=== PATIENT | female | born 1950 | race Caucasian/White ===

== ENCOUNTER → 2019-07-31 | Outpatient (CLI) | payer BC ==
[~2019-07-31] MED LIST: ACYC400T PO; ASPI81TA85 PO; CINN500C15 PO; HYDR50TAB PO; LISI-542 PO; MELO15TA28 PO; MS C15TA8 PO; NORV5TAB PO; PERC5TAB12 PO; PRAV40TA2 PO; PRIL20TA2 PO; TRAM50TA2 PO; ULTR50TA8 PO; VENL75TA2 PO
--- NOTE | 2019-07-31 14:07 | REP ---
REASON: Severe neck pain. There are no priors for comparison. I have been given no history of trauma whatsoever. There is advanced disc space narrowing at every level, particularly C4-5, C5-6, and C6-7, where heavy anterior and posterior osteophytic ridging is present. There is limitation of flexion and extension radiographically. Hypertrophic degenerative facet and uncovertebral joint changes are present at every level bilaterally. The facet joints appear to be well aligned bilaterally. On the left, there is foraminal narrowing C4-5 through C6-7 inclusive, and on the right there is foraminal narrowing C3-4 through C7-T1 inclusive. The dens cannot be effectively evaluated secondary to the superimposition of osseous structures and/or dentition on all views. Marked degenerative changes, as described above. Consider further evaluation with MRI. Although this plain radiographic evaluation of the cervical spine shows no evidence of a fracture, it should be remembered that CT is much more sensitive than plain radiography of the C-spine in detecting fractures. If this examination was ordered to rule out a fracture, then CT of the cervical spine is recommended. Electronically Signed by Elian Ramachandran DO 07/31/2019 03:06 P
--- NOTE | 2019-07-31 16:18 | ECGEPIP ---
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
== END ==
LOC: M RAD 10:54
PROVIDERS: ATTEND Chiropractor
DX: M54.2 Cervicalgia (principal)

== ENCOUNTER → 2019-07-31 | Outpatient (CLI) | payer BC ==
[2019-07-31 11:32] LABS: MEAN CORPUSCULAR HEMOGLOBIN 30.4 pg (27.0-33.0); MEAN CORPUSCULAR HGB CONC 32.5 g/dl (32.0-36.5); MEAN CORPUSCULAR VOLUME 93.5 fl (80.0-96.0); PLATELET COUNT, AUTOMATED 390 10^3/uL (150-450); RED BLOOD COUNT 4.28 10^6/uL (4.00-5.40); WHITE BLOOD COUNT 6.3 10^3/uL (4.0-10.0)
[2019-07-31 11:50] LABS: ERYTHROCYTE SEDIMENTATION RATE 37 mm/hr (0-30)
[2019-07-31 11:53] LABS: INR 1.09; PROTHROMBIN TIME 13.8 SECONDS (11.8-14.0)
[2019-07-31 12:06] LABS: ALBUMIN 3.9 GM/DL (3.2-5.2); BILIRUBIN,TOTAL 0.5 MG/DL (0.2-1.0); CREATININE FOR GFR 1.08 MG/DL (0.55-1.30); GLOMERULAR FILTRATION RATE 53.9 (>45); POTASSIUM SERUM 3.7 MEQ/L (3.5-5.1); TOTAL PROTEIN 7.5 GM/DL (6.4-8.2)
--- NOTE | 2019-07-31 12:18 | REP ---
TWO-VIEW CHEST: REASON FOR EXAM: Preop. COMPARISON: Portable exam of 10/05/2013, which is the only prior. FINDINGS: The superior mediastinal structures are midline. The cardiac silhouette is unremarkable in size, shape, and position. The diaphragmatic surfaces of the lungs are regular, and the costophrenic angles are clear. The pulmonary fortune are clear. The imaged osseous structures are intact. IMPRESSION: There is no acute cardiopulmonary disease. No significant change from the prior exam. Electronically Signed by Elian Ramachandran DO 07/31/2019 03:05 P
== END ==
LOC: M LAB 10:47
PROVIDERS: ATTEND Orthopaedic Surgery
DX: M17.12 Unilateral primary osteoarthritis, left knee (principal)

== ENCOUNTER → 2019-08-02 | Outpatient (CLI) | payer BC, OTHER | LOC: M LABSMTC 08:49 | PROVIDERS: ATTEND Anesthesiology | DX: Z03.818 Encounter for observation for suspected exposure to other biological agents ruled out (principal); Z11.59 Encounter for screening for other viral diseases | CPT/HCPCS: C9803; U0003 ==

== ENCOUNTER 2019-08-05 10:32 | Inpatient (IN) | payer BC ==
--- NOTE | 2019-07-31 16:23 | HPE ---
DATE OF ANTICIPATED ADMISSION: 08/05/2019 ATTENDING PHYSICIAN: Dr. Perez CHIEF COMPLAINT: Left knee pain and stiffness. HISTORY: The patient is a 69-year-old female with progressively worsening left knee pain and stiffness. She has failed to improve with conservative measures. She continues to have symptoms with weightbearing activities and activities of daily living. She consented for an elective left total knee arthroplasty with Dr. Perez for her continued symptoms. Medical optimization is pending with her primary healthcare corporate account director Dr. Gold. CURRENT MEDICATIONS: - aspirin 81 mg daily - potassium 20 mEq daily - magnesium 250 mg daily - cinnamon 2000 mg twice daily - Prilosec 20 mg twice daily - pravastatin 40 mg daily - venlafaxine 75 mg twice daily - hydrochlorothiazide 50 mg daily - amlodipine 5 mg daily - lisinopril 5 mg daily - meloxicam 15 mg daily - acyclovir 400 mg twice daily ALLERGIES: TALWIN, STADOL, CLINDAMYCIN, LEVAQUIN, CODEINE, TAVIST, MINOCIN, DEMEROL. CHRONIC MEDICAL CONSITIONS: Gastroesophageal reflux disease. Hypertension. Hyperlipidemia. Osteoarthritis. Post menopausal symptoms. PAST SURGICAL HISTORY: Total hysterectomy. Cholecystectomy. Cystocele repair. Urethra sling. Bilateral tubal ligation, SOCIAL HISTORY: The patient denies smoking and rarely consumes alcohol. REVIEW OF SYSTEMS: The patient denies fevers, chills, nausea, vomiting, or diarrhea. She denies chest pain, shortness of breath, lightheadedness, dizziness, or headaches. She denies any recent upper respiratory or urinary tract infection symptoms. She denies any abdominal pain. She does continue to have left knee pain with weightbearing activities and activities of daily living. PHYSICAL EXAMINATION: GENERAL: Well-nourished, well-developed female in no apparent distress. She is alert, oriented and cooperative. Mood and affect are appropriate. VITAL SIGNS: Blood pressure 132/68. Heart rate 63. Respirations 14. Height 64 inches. Weight 176. Temperature 96.8. HEART: Regular rate and rhythm. LUNGS: Breathing is regular and nonlabored. Lungs are clear to auscultation bilaterally. ABDOMEN: Soft. Bowel sounds are present. No tenderness to palpation. MUSCULOSKELETAL: Left knee reveals no gross abnormalities. There is no erythema, edema, or ecchymosis. Skin is intact. She does have tenderness along the medial joint line. The patient can extend knee to 2 degrees and flex to 110 degrees. Left lower extremity strength is 5/5. No hip irritability elicited with range of motion testing. The patient's calf is soft, nontender to palpation with no palpable cords noted. She is neurovascularly intact distally. IMPRESSION: Left knee degenerative arthritis with x-rays notable for end-stage degenerative changes. PLAN: The patient has consented for a left total knee arthroplasty with Dr. Perez for her continued symptoms. Medical optimization pending with Dr. Gold. The patient will scrap picker her Hibiclens wash and Bactroban and start using those today. She will discontinue her meloxicam 3 days prior to surgery. MTDD
[~2019-08-05] VITALS: Ht 160 cm; Wt 78.5 kg
[~2019-08-05 10:32] MED LIST changes: +ACETAMINOPHEN 500 MG TAB PO ONE; +LR 1,000 ML IV ONE; -MS C15TA8 PO; -PERC5TAB12 PO; -TRAM50TA2 PO; -ULTR50TA8 PO; +ceFAZolin SOD 2 GM in IV 1 EA IV ONE
--- NOTE | 2019-08-05 12:32 | CR.PDOC ---
General Date of Consultation: Aug 05, 2019 Consultation REASON FOR CONSULTATION/CHIEF COMPLAINT: Medical management Who presented to the hospital for an elective orthopedic procedure HISTORY OF PRESENT ILLNESS: Patient is a 69-year-old female with a past medical history of hypertension, dyslipidemia, osteoarthritis, and GERD who presented to the [facility] for an elective orthopedic procedure. Patient was scheduled for a total left knee arthroplasty and has received medical clearance from her outpatient provider, Dr. Gold. Patient reports that she received a stress test the day prior, which was negative. . Hospitalist service was consulted for medical management. Patient was seen preoperatively. She reports a mild headache. Denies nausea, vomiting, chest pain, shortness of breath, cough, palpitations, abdominal pain, constipation, diarrhea, urinary discomfort, fevers or chills. Patient reports her appetite is fairly normal. He denies any changes in her weight. ALLERGIES: Please see below. HOME MEDICATIONS: Please see below. PAST MEDICAL HISTORY: Hypertension, dyslipidemia, osteoarthritis, and GERD PAST SURGICAL HISTORY: Hysterectomy Cholecystectomy Cystocele repair Urethral sling Bilateral tubal ligation FAMILY HISTORY: - No history of malignancies SOCIAL HISTORY: - Denies the use of alcohol, tobacco or illicit drugs - Lives with REVIEW OF SYSTEMS: 10 point review of systems complete, all negative otherwise stated in HPI PHYSICAL EXAMINATION: - Vitals: BP 124/63, HR 95, RR 20, Sat 97%RA, Temp 97.9F - General: Lying in bed, No acute distress, Speaking in full sentences, AAOx3 - HEENT: NC, AT, PERRLA - CVS: RRR, +S1S2 - Lungs: Fair air entry bilaterally, no appreciable wheezing / rales / rhonchi - Abdomen: Soft, Non-distended, Non-tender - Extremities: No lower extremity edema, No calf tenderness - Neuro: No focal motor or sensory deficit - Skin: No visible rashes LABORATORY DATA: Please see below. ASSESSMENT/PLAN: Elective total left knee arthroplasty - Patient has presented to [facility] for elective procedure with orthopedic surgery - She has received outpatient medical clearance from her primary care provider, Dr. Gold - Pain control, anticoagulation and physical therapy at the direction of orthopedic surgery Hypertension - Will hold HCTZ (re: Await AM lab work) - c/w Lisinopril / Amlodipine Dyslipidemia - c/w Pravastatin Osteoarthritis - c/w Tylenol and additional pain control as per orthopedic team Depression - c/w Venlafaxine GERD - c/w Omeprazole DVT prophylaxis - Anticoagulation as per orthopedic team Vital Signs/I&O Vital Signs Date Time Temp Pulse Resp B/P (MAP) Pulse Ox O2 Delivery O2 Flow Rate FiO2 08/05/19 11:01 97.9 95 20 124/63 (83) 97 Room Air Allergies Coded Allergies: clindamycin (Verified Allergy, Intermediate, hives, 07/31/19) levofloxacin (Verified Allergy, Intermediate, hives, 07/31/19) minocycline (Verified Allergy, Intermediate, hives, 07/31/19) butorphanol (Verified Adverse Reaction, Intermediate, nausea, 07/31/19) codeine (Verified Adverse Reaction, Intermediate, nausea, 07/31/19) meperidine (Verified Adverse Reaction, Intermediate, nausea, 07/31/19) Uncoded Allergies: PAVIST (Allergy, Intermediate, itching, 07/31/19) Home Medications Scheduled Acyclovir (Acyclovir) 400 Mg Tablet, 400 MG PO BID, (Reported) Amlodipine Besylate (Norvasc) 5 Mg Tablet, 5 MG PO DAILY, (Reported) Aspirin (Aspir 81) 81 Mg Tablet.dr, 81 MG PO DAILY, #30 (Reported) Cinnamon Bark (Cinnamon) 500 Mg Capsule, 2,000 MG PO BID, (Reported) Hydrochlorothiazide (Hydrochlorothiazide) 50 Mg Tablet, 50 MG PO DAILY, (Reported) Lisinopril (Lisinopril) 5 Mg Tablet, 5 MG PO DAILY, (Reported) Meloxicam (Meloxicam) 15 Mg Tablet, 15 MG PO DAILY, (Reported) Omeprazole Magnesium (Prilosec Otc) 20 Mg Tablet.dr, 20 MG PO BID, (Reported) Pravastatin Sodium (Pravastatin Sodium) 40 Mg Tablet, 40 MG PO DAILY, (Reported) Venlafaxine HCl (Venlafaxine HCl) 75 Mg Tablet, 75 MG PO BID, (Reported) OBED SHERMAN MD Aug 05, 2019 12:32
[2019-08-05] MEDS ORDERED: fentaNYL 100 MCG/2 ML INJECTION (J3010) As Ordered ONE ×2 (12:34→14:06)
[2019-08-05] MEDS ORDERED: MIDAZOLAM INJ 2MG/2ML VIAL (J2250 PER 1MG) As Ordered ONE ×2 (12:34→14:06)
[2019-08-05] MEDS ORDERED: fentaNYL 100 MCG/2 ML INJECTION (J3010) IV ONE (13:00)
[2019-08-05] MEDS ORDERED: MIDAZOLAM INJ 2MG/2ML VIAL (J2250 PER 1MG) IV ONE (13:00)
[2019-08-05] MEDS ORDERED: TRANEXAMIC ACID 100 MG/ML 10ML VIAL As Ordered ONE (13:22)
[2019-08-05] MEDS ORDERED: EPINEPHrine INJ 1 MG/ML 1ML AMP As Ordered ONE (13:22)
[2019-08-05] MEDS ORDERED: BUPIVACAINE HCL 0.25% 30ML VIAL As Ordered ONE (13:22)
[2019-08-05] MEDS ORDERED: ceFAZolin 1GM VIAL (J0690 PER 500MG) As Ordered ONE (13:22)
[2019-08-05] MEDS ORDERED: BUPIVACAINE LIPOSOME/PF 1.3% 20ML VIAL (13.3MG/ML)(EXPAREL)(C9290 PER1MG) As Ordered ONE (13:23)
[2019-08-05] MEDS ORDERED: BUPIVACAINE/DEXTROSE 0.75% 2 ML AMP As Ordered ONE (14:06)
[2019-08-05] MEDS ORDERED: propofoL 200 MG/20 ML VIAL As Ordered ONE (14:06)
[2019-08-05] MEDS ORDERED: LIDOCAINE 2% 100MG/5ML SDV (FOR ANES.) As Ordered ONE (14:06)
[2019-08-05] MEDS ORDERED: ePHEDrine SULFATE 25 MG/5 ML(5MG/ML) SYRINGE As Ordered ONE ×2 (14:17→14:25)
[2019-08-05] MEDS ORDERED: PHENYLephrine HCL 500 MCG/5 ML (100MCG/ML) SYRINGE (J2370) As Ordered ONE ×2 (14:17→14:25)
[2019-08-05] MEDS ORDERED: ROPIvacaine 0.5% 30ML INJECTION (J2795 PER 1MG) ONE (14:34)
[2019-08-05] MEDS ORDERED: VASOPRESSIN INJ 20 UNITS/ML VIAL As Ordered ONE (14:34)
[2019-08-05] MEDS ORDERED: LIDOCAINE 1% MDV 20ML VIAL ONE (14:34)
[2019-08-05] MEDS ORDERED: dexameTHASONE 10MG/1ML VIAL PRES.FREE (J1100 PER 1MG) ONE (14:34)
[2019-08-05] MEDS ORDERED: oxyCODONE 5MG TAB PO PRN (16:00)
[2019-08-05] MEDS ORDERED: fentaNYL 100 MCG/2 ML INJECTION (J3010) IV PRN (16:00)
[2019-08-05] MEDS ORDERED: PERCOCET 5MG/325MG TAB PO PRN (16:00)
[2019-08-05] MEDS ORDERED: ONDANSETRON 4MG/2ML VIAL IV PRN ×2 (16:00)
[2019-08-05] MEDS ORDERED: MORPHINE 4 MG/ML 1ML VIAL/SYRINGE (J2270) IV PRN (16:00)
[2019-08-05] MEDS ORDERED: LR 1,000 ML IV SCH (16:00)
[2019-08-05] MEDS: HYDROMORPHONE HCL 0.5 MG/ 0.5 ML SYRINGE (J1170 PER 1) IV PRN ×3 (16:36→16:54)
--- NOTE | 2019-08-05 16:53 | REP ---
LEFT KNEE SERIES: TWO VIEWS. HISTORY: Postop evaluation. FINDINGS: Portably obtained AP and lateral views of the left knee demonstrate left knee arthroplasty components in good position. Anterior skin jamie are seen. Periarticular and intra-articular soft tissue emphysema is noted. IMPRESSION: Patient status post left knee arthroplasty. Electronically Signed by Jef Vargas MD 08/05/2019 05:23 P
[2019-08-05 18:00] VITALS: BP 119/68
[2019-08-05 18:30] VITALS: BP 93/52
[2019-08-05] MEDS: LR 1,000 ML IV SCH (18:39)
[2019-08-05 19:55] VITALS: BP 119/54
[2019-08-05 20:54] VITALS: BP 123/67
[2019-08-05] MEDS: PERCOCET 5MG/325MG TAB PO PRN (21:13)
[2019-08-05] MEDS: ASPIRIN 81 MG CHEW TABLET PO SCH (21:13)
[2019-08-05] MEDS: ceFAZolin SOD 2 GM in IV 1 EA IV SCH (21:14)
[2019-08-05 21:30] VITALS: BP 126/72
[2019-08-05 22:30] VITALS: BP 123/69
[2019-08-06] MEDS: LR 1,000 ML IV SCH (01:39)
[2019-08-06 02:06] VITALS: BP 101/59
[2019-08-06] MEDS: PERCOCET 5MG/325MG TAB PO PRN (06:25)
[2019-08-06] MEDS: ceFAZolin SOD 2 GM in IV 1 EA IV SCH ×2 (06:26→14:16)
[2019-08-06] MEDS ORDERED: ASPI81TA85 PO (06:31)
[2019-08-06] MEDS ORDERED: PERC5TAB12 PO (06:31)
[2019-08-06] MEDS ORDERED: PERCOCET 5MG/325MG TAB PO PRN ×2 (06:45)
[2019-08-06 07:24] LABS: BASO % 0.1 % (0.0-1.0); HEMATOCRIT 32.9 % (36.0-47.0); LYMPH # 0.6 10^3/uL (1.5-5.0); LYMPH % 4.7 % (24.0-44.0); MEAN CORPUSCULAR HEMOGLOBIN 31.3 pg (27.0-33.0); MEAN CORPUSCULAR HGB CONC 33.4 g/dl (32.0-36.5); MEAN CORPUSCULAR VOLUME 93.5 fl (80.0-96.0); MONO # 0.9 10^3/uL (0.0-0.8); MONO % 6.7 % (0.0-5.0); NEUTROPHILS # 11.4 10^3/uL (1.5-8.5); NEUTROPHILS % 88.2 % (36.0-66.0); PLATELET COUNT, AUTOMATED 334 10^3/uL (150-450); RED BLOOD COUNT 3.52 10^6/uL (4.00-5.40); WHITE BLOOD COUNT 12.9 10^3/uL (4.0-10.0)
[2019-08-06 07:47] LABS: ALBUMIN 3.1 GM/DL (3.2-5.2); BILIRUBIN,TOTAL 0.3 MG/DL (0.2-1.0); CALCIUM LEVEL 8.4 MG/DL (8.8-10.2); CREATININE FOR GFR 1.19 MG/DL (0.55-1.30); GLOMERULAR FILTRATION RATE 48.2 (>45); MAGNESIUM LEVEL 1.9 MG/DL (1.8-2.4); POTASSIUM SERUM 3.7 MEQ/L (3.5-5.1); TOTAL PROTEIN 6.2 GM/DL (6.4-8.2)
[2019-08-06] MEDS ORDERED: ULTR50TA8 PO (08:44)
[2019-08-06] MEDS ORDERED: MIRALAX *UNIT DOSE* 17GM PACKET PO SCH (09:00)
[2019-08-06] MEDS ORDERED: MOM 30ML SUSPENSION UDC PO SCH (09:00)
[2019-08-06] MEDS ORDERED: TRAM50TA2 PO (09:05)
[2019-08-06] MEDS: ACETAMINOPHEN TAB 650MG DOSE (2X325MG) PO PRN ×2 (09:53→14:15)
[2019-08-06] MEDS: ASPIRIN 81 MG CHEW TABLET PO SCH (09:53)
[2019-08-06] MEDS: traMADol 50 MG TAB PO PRN ×2 (09:54→14:15)
--- NOTE | 2019-08-06 12:20 | IPNPDOC ---
Text Note Date of Service The patient was seen on 08/06/19. NOTE Subjective: No complaints this am except for appropriate knee pain. No nausea or vomiting, no chest pain or SOB. PHYSICAL EXAMINATION: Vitals: as below General: Lying in bed, No acute distress, Speaking in full sentences, AAOx3 HEENT: NC, AT, PERRLA CVS: RRR, +S1S2 Lungs: Fair air entry bilaterally, no appreciable wheezing / rales / rhonchi Abdomen: Soft, Non-distended, Non-tender Extremities: No lower extremity edema, No calf tenderness Neuro: No focal motor or sensory deficit Skin: No visible rashes ASSESSMENT/PLAN: Patient is a 69-year-old female with a past medical history of hypertension, dyslipidemia, osteoarthritis, and GERD who presented to the [facility] for an elective orthopedic procedure. Patient had total left knee arthroplasty on 08/05/19 Elective total left knee arthroplasty Pain control, anticoagulation and physical therapy at the direction of orthopedic surgery Hypertension c/w Lisinopril / Amlodipine can restart HCTZ on discharge. Dyslipidemia c/w Pravastatin Depression c/w Venlafaxine GERD c/w Omeprazole DVT prophylaxis Anticoagulation as per orthopedic team VS,Mariya, I+O VSMariya, I+O Laboratory Tests 08/06/19 06:14 Vital Signs Date Time Temp Pulse Resp B/P (MAP) Pulse Ox O2 Delivery O2 Flow Rate FiO2 08/06/19 10:24 18 Room Air 08/06/19 02:06 98.3 89 101/59 (73) 91 08/05/19 21:00 2.0 I&O- Last 24 Hours up to 6 AM 08/06/19 06:00 Intake Total 2670 ml Output Total 970 ml Balance 1700 ml AGUSTINA CLIFFORD MD Aug 06, 2019 12:20
[2019-08-06 14:20] VITALS: BP 106/63
[2019-08-06] MEDS ORDERED: MORPHINE 15 MG SA TAB PO ONE (16:00)
[2019-08-06] MEDS ORDERED: MS C15TA8 PO (16:02)
--- NOTE | 2019-08-06 16:19 | RO ---
DATE OF PROCEDURE: 08/05/2019 PREPROCEDURE DIAGNOSIS: Left knee degenerative arthritis. POSTPROCEDURE DIAGNOSIS: Left knee degenerative arthritis. PROCEDURE: Left total knee arthroplasty using a size 5 cruciate retaining femoral component with a size 5 tibial tray and a 6 mm rotating plate form polyethylene insert and a 32 mm polyethylene button. All components were cemented. Prosthesis was made by [employer]. It was an [employer]. SURGEON: Dr. Dionisio Perez. VIDEO GAME ANIMATOR: ABEL Mcduffie. ANESTHESIA: Spinal with left femoral nerve block. COMPLICATIONS: None. SPECIMENS: Joint surface. ESTIMATED BLOOD LOSS: Less than 20 mL. DESCRIPTION OF PROCEDURE: Antibiotics were given intravenously preoperatively, then a successful left femoral nerve block and then spinal anesthetic was induced. Tourniquet placed on the left upper thigh and not inflated. Left lower extremity was carefully prepped and draped in the usual sterile fashion and the leg elevated. After an appropriate time-out, the tourniquet was inflated and the longitudinal incision was made for a medial parapatellar approach to the knee. Bovie cautery was used to coagulate crossing vessels. Medial parapatellar arthrotomy performed. Subperiosteal dissection of a possible medial and lateral tibial plateau was performed and the patella was everted. The knees flexed. The anterior cruciate ligament (ACL) debrided. Drill placed down the center of the femoral canal, probed with an intramedullary kasi. The distal femoral cutting jig set at 9 mm resection level at 5 degree valgus for a left knee. Block was pinned into position. Distal femoral cut performed. AP sizing jig measured for a size 5. 3 degrees of external rotation were dialed in. The 4-in-1 block applied and the anterior and posterior chamfer cuts performed. Sulcus osteotomy jig was applied and the sulcus osteotomy performed. We then exposed the proximal tibia, sized and used the extramedullary alignment jig to estimated being parallel to the mechanical axis with the tibial referencing off the medial tibial condyle at 4 mm resection levels. The block was pinned into position. Secondary extramedullary kasi confirmed we appeared to be parallel. Then we performed the proximal tibial osteotomy. Lamina semiconductor assembler ws then placed laterally and we performed a completion medial meniscectomy debriding posteromedial osteophytes. We then placed the lamina semiconductor assembler medially and performed a completion lateral meniscectomy debriding the posterolateral osteophytes. Spacer block at 6 mm actually fit very nicely and with good symmetry in the flexion and extension joint space with good stability varus valgus stress testing. We the exposed the proximal tibia, sized for a #5 tray which was pinned into position followed by the reamer and broach. Then the trial polyethylene placed. Trial femoral component was placed. Brought the knee into extension, everted the patella, performed a patellar osteotomy and sized for a 32 button. Lung holes drilled, trial placed, patellofemoral tracking was anatomic. She had very good stability and thus I drilled the lung holes for the femur. I removed all the of trial components. Exparel was placed in the subperiosteal tissues along the distal femur and the proximal tibia. Then my laundry assistant, Yecenia Alvarado mixed the cement on the back of the table as I prepared the bony surfaces for cementing with a copious amount of pulsatile lavage irrigant solution. She was critical to the success of this difficult surgery by helping with preparing the patient, helping to irrigate and helping to manipulate the knee and apply appropriate soft tissue retraction so I can perform the operation smoothly, efficiently and safely. Once the cement was mixed and the bony surfaced thoroughly irrigated, I cemented the tibial tray, removed excess cement, placed the polyethylene. Then cemented the femoral component, removed the excess cement. Brought the knee into extension and cemented the patellar button and held it with a clamp with the knee in full extension until the cement hardened. As we were waiting for this, we copiously pulsatile lavaged and irrigated out the knee joint. Then placed Exparel and then closed the arthrotomy with two apex #1 PDS sutures, one at the medial parapatellar area and then a double-arm #1 Stratafix to close the capsule in a running fashion. Then we released the tourniquet. We irrigated between layers. Closed the deep subdermal tissues with interrupted #2-0 PDS sutures. The skin was closed with jamie, covered by an Optifoam with a dry sterile bulky dressing. She was then transferred to the recovery room in stable condition. There were no intraoperative complications.
[2019-08-07] MEDS ORDERED: INFLUENZA QUADRIVALENT PF VACCINE 0.5ML SYRINGE IM ONE (09:00)
== END 2019-08-06 17:35 | disposition home or self-care (01) | DRG 302 ==
LOC: M OR 10:32 → M MS5PR 18:00
PROVIDERS: ADMIT Orthopaedic Surgery; ATTEND Orthopaedic Surgery
PROC: 0SRD0J9 Replacement of Left Knee Joint with Synthetic Substitute, Cemented, Open Approach (ICD-10-PCS; principal; 2019-08-05 13:00)
DX: M17.12 Unilateral primary osteoarthritis, left knee (principal); I10 Essential (primary) hypertension; K21.9 Gastro-esophageal reflux disease without esophagitis; E78.5 Hyperlipidemia, unspecified; Z90.49 Acquired absence of other specified parts of digestive tract; Z90.710 Acquired absence of both cervix and uterus; Z79.82 Long term (current) use of aspirin; Z79.1 Long term (current) use of non-steroidal anti-inflammatories (NSAID); Z79.899 Other long term (current) drug therapy; Z88.1 Allergy status to other antibiotic agents; Z88.5 Allergy status to narcotic agent; Z88.8 Allergy status to other drugs, medicaments and biological substances